=== PATIENT | female | born 1980 | race Two or more races ===

== ENCOUNTER 2018-07-03 11:09 | Inpatient (IN) | payer OTHER ==
[~2018-07-03] VITALS: Ht 167.6 cm; Wt 56.7 kg
[2018-07-03] MEDS ORDERED: VANCOMYCIN IV 1,000 MG in IV DEXTROSE 5% 250 ML IV ONE (12:00)
[2018-07-03] MEDS ORDERED: MORPHINE SULFATE 10 MG/1 ML DISP.SYRIN IV ONE ×2 (12:00→14:00)
[2018-07-03] MEDS ORDERED: LEVOFLOXACIN 750MG/D5W 150 ML IV ONE (12:00)
[2018-07-03] MEDS ORDERED: LEVOFLOXACIN 750 MG/D5W 150 ML PIGGYBACK IV ONE (12:00)
[2018-07-03] MEDS ORDERED: VANCOMYCIN IV 200 ML ONE (12:01)
[2018-07-03] MEDS ORDERED: MORPHINE SULFATE 4 MG/1 ML DISP.SYRIN ONE ×2 (12:03→14:01)
[2018-07-03 12:19] LABS: BASOPHILS % (AUTO) 0.4 % (0.0-2.0); EOSINOPHILS # (AUTO) 0.1 K/uL (0.0-0.7); EOSINOPHILS % (AUTO) 1.1 % (0.0-7.0); HEMATOCRIT 26.8 % (31.2-41.9); HEMOGLOBIN 8.8 g/dL (10.9-14.3); LYMPHOCYTES % (AUTO) 11.7 % (20.5-51.5); MEAN CORPUSCULAR HEMOGLOBIN 25.9 uug (24.7-32.8); MEAN CORPUSCULAR HGB CONC 33 g/dL (32.3-35.6); MEAN CORPUSCULAR VOLUME 79.1 fL (75.5-95.3); MONOCYTES # (AUTO) 0.9 K/uL (2.0-10.0); MONOCYTES % (AUTO) 10.3 % (0.0-11.0); NEUTROPHILS # (AUTO) 6.5 K/uL (1.8-8.9); NEUTROPHILS % (AUTO) 76.5 % (38.5-71.5); PLATELET COUNT (AUTO) 309 K/uL (179-408); RED BLOOD CELL COUNT(AUTO) 3.39 MIL/uL (3.63-4.92); WHITE BLOOD COUNT (AUTO) 8.5 K/uL (3.8-11.8)
[2018-07-03 12:26] LABS: CARBON DIOXIDE 29 mmol/L (21-32); CHLORIDE 96 mmol/L (98-107); CREATININE 0.5 mg/dL (0.6-1.3); GLUCOSE 89 mg/dL (74-106); POTASSIUM 3.1 mmol/L (3.5-5.1); UREA NITROGEN, BLOOD 11 mg/dL (7-18)
[2018-07-03 12:31] LABS: ALANINE AMINOTRANSFERASE 109 U/L (14-59); ALKALINE PHOSPHATASE 167 U/L (50-136); ASPARTATE AMINOTRANSFERASE 75 U/L (15-37); BILIRUBIN,DIRECT 0.3 mg/dL (0.0-0.2); BILIRUBIN,TOTAL 0.7 mg/dL (0.2-1.0); TOTAL PROTEIN, SERUM 6.9 g/dL (6.4-8.2)
[2018-07-03] MEDS ORDERED: diphenhydrAMINE 25 MG CAP PO ONE ×2 (12:44→12:45)
[2018-07-03] MEDS ORDERED: POTASSIUM BICARBONATE/CIT AC 25 MEQ TABLET.EFF ONE (12:45)
[2018-07-03] MEDS ORDERED: POTASSIUM BICARBONATE/CIT AC 25 MEQ TABLET.EFF PO ONE (12:45)
[2018-07-03] MEDS ORDERED: LORAZEPAM 0.5 MG TABLET PO ONE (13:30)
[2018-07-03] MEDS ORDERED: LIDOCAINE 5% PATCH TD ONE ×2 (14:00→14:01)
[2018-07-03] MEDS ORDERED: LORAZEPAM 0.5 MG TABLET ONE (14:00)
[2018-07-03] MEDS ORDERED: LORA2TAB PO (20:50)
[2018-07-03 21:03] VITALS: BP 103/57
[2018-07-03] MEDS ORDERED: ONDANSETRON 4 MG/2 ML VIAL IV PRN (21:45)
[2018-07-03] MEDS ORDERED: MAGNESIUM HYDROXIDE 30 ML LIQUID UDC PO PRN (21:45)
[2018-07-03] MEDS: LORAZEPAM 2 MG/1 ML VIAL IV PRN (22:04)
[2018-07-03] MEDS: MORPHINE SULFATE 4 MG/1 ML DISP.SYRIN IV PRN (22:04)
[2018-07-03] MEDS ORDERED: MEROPENEM 1 G VIAL IV ONE (22:34)
[2018-07-03] MEDS ORDERED: VANCOMYCIN IV 1 G in PREMIXED 0 EACH IV ONE (23:00)
[2018-07-04] MEDS: MEROPENEM 500 MG in IV NORMAL SALINE 50 ML IV SCH ×2 (00:17→05:43)
[2018-07-04] MEDS ORDERED: VANCOMYCIN IV 200 ML ONE (01:02)
[2018-07-04] MEDS: IV 0.9% SODIUM CHLORID+ 20 KCL 1,000 ML IV PRN (01:23)
[2018-07-04] MEDS: MORPHINE SULFATE 4 MG/1 ML DISP.SYRIN IV PRN ×3 (02:31→15:30)
[2018-07-04 06:25] VITALS: BP 110/62
[2018-07-04] MEDS: FAMOTIDINE 20 MG TABLET PO SCH (08:01)
[2018-07-04] MEDS: VANCOMYCIN IV 1 G in PREMIXED 0 EACH IV SCH ×3 (10:34→21:00)
[2018-07-04] MEDS: LORAZEPAM 2 MG/1 ML VIAL IV PRN (10:48)
[2018-07-04 11:10] VITALS: BP 97/37
[2018-07-04] MEDS: MEROPENEM 0.5 G in IV NORMAL SALINE 50 ML IV SCH ×2 (13:53→22:00)
[2018-07-04 15:12] VITALS: BP 100/42
[2018-07-04 20:38] VITALS: BP 98/57
[2018-07-05] MEDS: VANCOMYCIN IV 1 G in PREMIXED 0 EACH IV SCH ×3 (04:30→23:45)
[2018-07-05] MEDS: MEROPENEM 0.5 G in IV NORMAL SALINE 50 ML IV SCH ×3 (05:33→20:01)
[2018-07-05] MEDS: FAMOTIDINE 20 MG TABLET PO SCH (09:00)
[2018-07-05] MEDS: MORPHINE SULFATE 4 MG/1 ML DISP.SYRIN IV PRN ×3 (12:20→21:47)
[2018-07-05] MEDS: LORAZEPAM 2 MG/1 ML VIAL IV PRN (13:30)
[2018-07-05] MEDS: IV 0.9% SODIUM CHLORID+ 20 KCL 1,000 ML IV PRN (13:45)
[2018-07-05 19:50] VITALS: BP 95/40
[2018-07-05] MEDS: HYDROCODONE/APAP 5-325MG TABLET PO PRN (19:50)
[2018-07-05] MEDS: LACTOBACILLUS RHAMNOSUS GG 1 EACH CAPSULE PO SCH (20:01)
[2018-07-05] MEDS: ZOLPIDEM 5 MG TABLET PO PRN (23:46)
[2018-07-06] MEDS: LORAZEPAM 2 MG/1 ML VIAL IV PRN (01:39)
[2018-07-06] MEDS: MORPHINE SULFATE 4 MG/1 ML DISP.SYRIN IV PRN ×3 (01:47→09:39)
[2018-07-06] MEDS: HYDROCODONE/APAP 5-325MG TABLET PO PRN (03:22)
[2018-07-06 04:25] VITALS: BP 96/43
[2018-07-06] MEDS: MEROPENEM 0.5 G in IV NORMAL SALINE 50 ML IV SCH ×3 (05:11→21:01)
[2018-07-06 06:38] LABS: BASOPHILS % (AUTO) 0.6 % (0.0-2.0); EOSINOPHILS # (AUTO) 0.1 K/uL (0.0-0.7); EOSINOPHILS % (AUTO) 1.6 % (0.0-7.0); HEMATOCRIT 25.3 % (31.2-41.9); HEMOGLOBIN 8.2 g/dL (10.9-14.3); LYMPHOCYTES # (AUTO) 0.9 K/uL (20.0-40.0); LYMPHOCYTES % (AUTO) 11.1 % (20.5-51.5); MEAN CORPUSCULAR HEMOGLOBIN 25.3 uug (24.7-32.8); MEAN CORPUSCULAR HGB CONC 33 g/dL (32.3-35.6); MEAN CORPUSCULAR VOLUME 77.7 fL (75.5-95.3); MONOCYTES # (AUTO) 0.9 K/uL (2.0-10.0); MONOCYTES % (AUTO) 10.8 % (0.0-11.0); NEUTROPHILS # (AUTO) 6.1 K/uL (1.8-8.9); NEUTROPHILS % (AUTO) 75.9 % (38.5-71.5); PLATELET COUNT (AUTO) 332 K/uL (179-408); RED BLOOD CELL COUNT(AUTO) 3.26 MIL/uL (3.63-4.92); WHITE BLOOD COUNT (AUTO) 8.1 K/uL (3.8-11.8)
[2018-07-06 06:47] LABS: BILIRUBIN,TOTAL 0.4 mg/dL (0.2-1.0); CREATININE 0.6 mg/dL (0.6-1.3); MAGNESIUM 2.1 mg/dL (1.8-2.4); PHOSPHOROUS 3.3 mg/dL (2.5-4.9); POTASSIUM 3.7 mmol/L (3.5-5.1); TOTAL PROTEIN, SERUM 6.2 g/dL (6.4-8.2)
[2018-07-06] MEDS: VANCOMYCIN IV 1 G in PREMIXED 0 EACH IV SCH ×2 (08:00→08:26)
[2018-07-06] MEDS: LACTOBACILLUS RHAMNOSUS GG 1 EACH CAPSULE PO SCH ×2 (08:26→21:00)
[2018-07-06] MEDS: FAMOTIDINE 20 MG TABLET PO SCH (08:26)
[2018-07-06] MEDS: ACETAMINOPHEN 325 MG TABLET PO PRN (09:52)
[2018-07-06] MEDS ORDERED: MORPHINE SULFATE 4 MG/1 ML DISP.SYRIN IV ONE (10:45)
[2018-07-06] MEDS ORDERED: MORPHINE SULFATE 2 MG/1 ML DISP.SYRIN IV ONE (10:45)
[2018-07-06] MEDS: CLINDAMYCIN PHOSPHATE IV 900 MG in IV DEXTROSE 5% 100 ML IV SCH ×2 (12:03→19:53)
[2018-07-06 15:55] VITALS: BP 93/57
[2018-07-06 18:21] VITALS: BP 98/57
[2018-07-06] MEDS: IV 0.9% SODIUM CHLORID+ 20 KCL 1,000 ML IV PRN (18:54)
[2018-07-06 19:00] VITALS: BP 90/46
[2018-07-07] VITALS (7 sets, daily range): BP systolic 86–103; BP diastolic 31–49
[2018-07-07] MEDS: CLINDAMYCIN PHOSPHATE IV 900 MG in IV DEXTROSE 5% 100 ML IV SCH ×3 (03:55→19:55)
[2018-07-07] MEDS: ACETAMINOPHEN 325 MG TABLET PO PRN (03:56)
[2018-07-07] MEDS: MEROPENEM 0.5 G in IV NORMAL SALINE 50 ML IV SCH ×3 (05:14→21:57)
[2018-07-07] MEDS ORDERED: IV LACTATED RINGERS SOLUTION 1,000 ML BAG IV ONE (08:04)
[2018-07-07] MEDS ORDERED: LIDOCAINE-MPF 2% 5 ML VIAL MC ONE (08:04)
[2018-07-07] MEDS ORDERED: DEXAMETHASONE SOD PHOSPHATE 4 MG INJ IV ONE (08:04)
[2018-07-07] MEDS ORDERED: PROPOFOL 200 MG/20 ML BOTTLE IV ONE (08:04)
[2018-07-07] MEDS ORDERED: ONDANSETRON 4 MG/2 ML VIAL IV ONE (08:04)
[2018-07-07] MEDS: FAMOTIDINE 20 MG TABLET PO SCH (09:00)
[2018-07-07] MEDS: LACTOBACILLUS RHAMNOSUS GG 1 EACH CAPSULE PO SCH ×2 (09:00→20:41)
[2018-07-07] MEDS ORDERED: POLYMYXIN B SULFATE 500,000 UNITS, BACITRACIN 50,000 UNITS, NORMAL SALINE 20 ML MC ONE ×3 (11:15)
[2018-07-07] MEDS ORDERED: HYDROMORPHONE 2 MG/1 ML DISP.SYRIN ONE (12:12)
[2018-07-07] MEDS ORDERED: MIDAZOLAM HCL 2 MG/2 ML VIAL ONE ×2 (12:12→13:19)
[2018-07-07] MEDS ORDERED: SEVOFLURANE 250 ML BOTTLE ONE (12:22)
[2018-07-07] MEDS ORDERED: FENTANYL CITRATE 100 MCG/2 ML AMPUL ONE (13:14)
[2018-07-07] MEDS ORDERED: HYDROMORPHONE 1 MG/1 ML DISP.SYRIN ONE (13:35)
[2018-07-07] MEDS ORDERED: LORAZEPAM 2 MG/1 ML VIAL IM PRN (16:00)
[2018-07-07] MEDS ORDERED: HALOPERIDOL LACTATE 5 MG/1 ML VIAL IM ONE (16:00)
[2018-07-07] MEDS ORDERED: HALOPERIDOL DECANOATE 50 MG/1 ML AMPUL IM ONE (16:00)
[2018-07-07] MEDS: MORPHINE SULFATE 4 MG/1 ML DISP.SYRIN IV PRN ×2 (17:37→21:56)
[2018-07-07] MEDS: IV 0.9% SODIUM CHLORID+ 20 KCL 1,000 ML IV PRN (20:06)
[2018-07-07] MEDS: DIVALPROEX 500 MG TABLET.DR PO SCH (20:41)
[2018-07-07] MEDS: QUETIAPINE FUMARATE 100 MG TABLET PO SCH (20:41)
[2018-07-07] MEDS: ZOLPIDEM 5 MG TABLET PO PRN (20:56)
[2018-07-08] MEDS: MORPHINE SULFATE 4 MG/1 ML DISP.SYRIN IV PRN ×5 (03:03→20:16)
[2018-07-08 04:00] VITALS: BP 112/43
[2018-07-08] MEDS: CLINDAMYCIN PHOSPHATE IV 900 MG in IV DEXTROSE 5% 100 ML IV SCH ×3 (04:09→20:32)
[2018-07-08] MEDS: MEROPENEM 0.5 G in IV NORMAL SALINE 50 ML IV SCH ×3 (05:35→21:26)
[2018-07-08 07:20] VITALS: BP 112/43
[2018-07-08 08:00] VITALS: BP 124/69
[2018-07-08] MEDS: QUETIAPINE FUMARATE 100 MG TABLET PO SCH ×2 (08:38→20:19)
[2018-07-08] MEDS: DIVALPROEX 500 MG TABLET.DR PO SCH ×2 (08:38→20:18)
[2018-07-08] MEDS: FAMOTIDINE 20 MG TABLET PO SCH (08:38)
[2018-07-08] MEDS: LACTOBACILLUS RHAMNOSUS GG 1 EACH CAPSULE PO SCH ×2 (08:38→20:18)
[2018-07-08 09:15] LABS: BASOPHILS # (AUTO) 0.1 K/uL (0.0-8.0); BASOPHILS % (AUTO) 0.2 % (0.0-2.0); HEMATOCRIT 24.1 % (31.2-41.9); HEMOGLOBIN 7.8 g/dL (10.9-14.3); LYMPHOCYTES # (AUTO) 1.5 K/uL (20.0-40.0); LYMPHOCYTES % (AUTO) 5.5 % (20.5-51.5); MEAN CORPUSCULAR HEMOGLOBIN 25.5 uug (24.7-32.8); MEAN CORPUSCULAR HGB CONC 32 g/dL (32.3-35.6); MEAN CORPUSCULAR VOLUME 78.7 fL (75.5-95.3); MONOCYTES # (AUTO) 0.3 K/uL (2.0-10.0); MONOCYTES % (AUTO) 1.3 % (0.0-11.0); NEUTROPHILS # (AUTO) 24.9 K/uL (1.8-8.9); PLATELET COUNT (AUTO) 325 K/uL (179-408); RED BLOOD CELL COUNT(AUTO) 3.06 MIL/uL (3.63-4.92); WHITE BLOOD COUNT (AUTO) 26.8 K/uL (3.8-11.8)
[2018-07-08 09:25] LABS: CREATININE 0.6 mg/dL (0.6-1.3); MAGNESIUM 2.2 mg/dL (1.8-2.4); PHOSPHOROUS 2.4 mg/dL (2.5-4.9); POTASSIUM 4.4 mmol/L (3.5-5.1)
[2018-07-08 09:38] LABS: LYMPHOCYTES % (MANUAL) 4 % (20-40); MONOCYTES % (MANUAL) 1 % (2-10); NEUTROPHILS % (MANUAL) 95 % (42-75)
[2018-07-08 10:33] LABS: BASOPHILS % (AUTO) 0.1 % (0.0-2.0); HEMATOCRIT 22.7 % (31.2-41.9); LYMPHOCYTES # (AUTO) 1.6 K/uL (20.0-40.0); LYMPHOCYTES % (AUTO) 6.4 % (20.5-51.5); MEAN CORPUSCULAR HEMOGLOBIN 25.2 uug (24.7-32.8); MEAN CORPUSCULAR HGB CONC 32 g/dL (32.3-35.6); MEAN CORPUSCULAR VOLUME 78.6 fL (75.5-95.3); MONOCYTES # (AUTO) 0.8 K/uL (2.0-10.0); MONOCYTES % (AUTO) 3.3 % (0.0-11.0); NEUTROPHILS # (AUTO) 22.6 K/uL (1.8-8.9); NEUTROPHILS % (AUTO) 90.2 % (38.5-71.5); PLATELET COUNT (AUTO) 330 K/uL (179-408); RED BLOOD CELL COUNT(AUTO) 2.89 MIL/uL (3.63-4.92)
[2018-07-08 10:34] LABS: HEMOGLOBIN 7.3 g/dL (10.9-14.3)
[2018-07-08] MEDS: IV 0.9% SODIUM CHLORID+ 20 KCL 1,000 ML IV PRN (10:48)
[2018-07-08 11:35] VITALS: BP 171/103
[2018-07-08] MEDS: diphenhydrAMINE 50 MG/1 ML VIAL IV PRN ×2 (12:21→17:59)
[2018-07-08] MEDS ORDERED: NEUTRA PHOS PACKET PO ONE (15:30)
[2018-07-08] MEDS: LORAZEPAM 2 MG/1 ML VIAL IV PRN (16:56)
[2018-07-08 18:00] VITALS: BP 101/55
[2018-07-08] MEDS: ACETAMINOPHEN 325 MG TABLET PO PRN (18:56)
[2018-07-08 20:00] VITALS: BP 126/78
[2018-07-08] MEDS: ZOLPIDEM 5 MG TABLET PO PRN (20:29)
[2018-07-08] MEDS: BACLOFEN 10 MG TABLET PO SCH (22:12)
[2018-07-09] MEDS: diphenhydrAMINE 50 MG/1 ML VIAL IV PRN ×2 (01:01→10:30)
[2018-07-09] MEDS: MORPHINE SULFATE 4 MG/1 ML DISP.SYRIN IV PRN ×4 (01:01→14:07)
[2018-07-09] MEDS: CLINDAMYCIN PHOSPHATE IV 900 MG in IV DEXTROSE 5% 100 ML IV SCH ×2 (03:20→12:41)
[2018-07-09 04:00] VITALS: BP 100/61
[2018-07-09] MEDS: MEROPENEM 0.5 G in IV NORMAL SALINE 50 ML IV SCH ×2 (05:01→14:07)
[2018-07-09] MEDS: LORAZEPAM 2 MG/1 ML VIAL IV PRN (07:40)
[2018-07-09] MEDS ORDERED: ENSURE ENLIVE (VAN) 240 ML LIQUID PO SCH (08:15)
[2018-07-09 08:51] LABS: BASOPHILS # (AUTO) 0.1 K/uL (0.0-8.0); BASOPHILS % (AUTO) 0.8 % (0.0-2.0); EOSINOPHILS # (AUTO) 0.4 K/uL (0.0-0.7); EOSINOPHILS % (AUTO) 3.9 % (0.0-7.0); LYMPHOCYTES # (AUTO) 3.1 K/uL (20.0-40.0); LYMPHOCYTES % (AUTO) 33.4 % (20.5-51.5); MEAN CORPUSCULAR HGB CONC 32 g/dL (32.3-35.6); MEAN CORPUSCULAR VOLUME 77.6 fL (75.5-95.3); MONOCYTES # (AUTO) 0.5 K/uL (2.0-10.0); MONOCYTES % (AUTO) 5.1 % (0.0-11.0); NEUTROPHILS # (AUTO) 5.3 K/uL (1.8-8.9); NEUTROPHILS % (AUTO) 56.8 % (38.5-71.5); PLATELET COUNT (AUTO) 382 K/uL (179-408); RED BLOOD CELL COUNT(AUTO) 3.61 MIL/uL (3.63-4.92); WHITE BLOOD COUNT (AUTO) 9.3 K/uL (3.8-11.8)
[2018-07-09] MEDS ORDERED: QUETIAPINE FUMARATE 200 MG TABLET PO SCH (09:00)
[2018-07-09 09:10] LABS: CREATININE 0.8 mg/dL (0.6-1.3); MAGNESIUM 1.8 mg/dL (1.8-2.4); PHOSPHOROUS 4.4 mg/dL (2.5-4.9); POTASSIUM 4.2 mmol/L (3.5-5.1)
[2018-07-09 09:37] LABS: LYMPHOCYTES % (MANUAL) 38 % (20-40); NEUTROPHILS % (MANUAL) 50 % (42-75)
[2018-07-09 09:38] LABS: EOSINOPHILS % (MANUAL) 5 % (0-8); MONOCYTES % (MANUAL) 7 % (2-10)
[2018-07-09] MEDS: FAMOTIDINE 20 MG TABLET PO SCH (09:42)
[2018-07-09] MEDS: LACTOBACILLUS RHAMNOSUS GG 1 EACH CAPSULE PO SCH (09:42)
[2018-07-09] MEDS: BACLOFEN 10 MG TABLET PO SCH (09:43)
[2018-07-09] MEDS: DIVALPROEX 500 MG TABLET.DR PO SCH (09:43)
== END 2018-07-09 16:00 | disposition home or self-care (01) | DRG 364 ==
LOC: ER 11:09 → MED 20:25
PROVIDERS: ADMIT Internal Medicine; ATTEND Internal Medicine
PROC: 05HM33Z Insertion of Infusion Device into Right Internal Jugular Vein, Percutaneous Approach (ICD-10-PCS; principal; 2018-07-05)
PROC: B543ZZA Ultrasonography of Right Jugular Veins, Guidance (ICD-10-PCS; principal; 2018-07-05)
PROC: 0J9L3ZX Drainage of Right Upper Leg Subcutaneous Tissue and Fascia, Percutaneous Approach, Diagnostic (ICD-10-PCS; 2018-07-07)
PROC: 0J9D3ZX Drainage of Right Upper Arm Subcutaneous Tissue and Fascia, Percutaneous Approach, Diagnostic (ICD-10-PCS; 2018-07-07)
PROC: 0JJW3ZZ Inspection of Lower Extremity Subcutaneous Tissue and Fascia, Percutaneous Approach (ICD-10-PCS; 2018-07-07)
PROC: 0JDD0ZZ Extraction of Right Upper Arm Subcutaneous Tissue and Fascia, Open Approach (ICD-10-PCS; 2018-07-07)
PROC: 0JDL0ZZ Extraction of Right Upper Leg Subcutaneous Tissue and Fascia, Open Approach (ICD-10-PCS; 2018-07-07)
DX: L03.115 Cellulitis of right lower limb (principal); E87.8 Other disorders of electrolyte and fluid balance, not elsewhere classified; F11.20 Opioid dependence, uncomplicated; F31.64 Bipolar disorder, current episode mixed, severe, with psychotic features; S41.031S Puncture wound without foreign body of right shoulder, sequela; D63.8 Anemia in other chronic diseases classified elsewhere; E87.6 Hypokalemia; F12.90 Cannabis use, unspecified, uncomplicated; F17.210 Nicotine dependence, cigarettes, uncomplicated; L02.413 Cutaneous abscess of right upper limb; B95.62 Methicillin resistant Staphylococcus aureus infection as the cause of diseases classified elsewhere; L02.416 Cutaneous abscess of left lower limb; L02.415 Cutaneous abscess of right lower limb; S71.132S Puncture wound without foreign body, left thigh, sequela; S71.131S Puncture wound without foreign body, right thigh, sequela; X78.8XXS Intentional self-harm by other sharp object, sequela; Z90.710 Acquired absence of both cervix and uterus; Z90.49 Acquired absence of other specified parts of digestive tract; Z88.0 Allergy status to penicillin; L03.317 Cellulitis of buttock; Z91.5 Personal history of self-harm; Z59.0 Homelessness; K76.9 Liver disease, unspecified; B19.20 Unspecified viral hepatitis C without hepatic coma; Z98.890 Other specified postprocedural states; L90.5 Scar conditions and fibrosis of skin
CPT/HCPCS: 36415; 36569; 70030-TC; 71045; 73700; 83735; 84100; 85025; 86803; 87070; 87075; 87077; 93005; A4649; A4663; C1751; G0378; J1100; J1170; J1200; J1630; J1956; J2060; J2185; J2250; J2270; J2405; J3010; J3370; J3490; J7030; J7040; J7050; J7060; J7120; Q0163

== ENCOUNTER 2018-12-17 14:13 | Inpatient (IN) | payer OTHER ==
[~2018-12-17] VITALS: Ht 167.6 cm; Wt 50.8 kg
[~2018-12-17 14:13] MED LIST: LORA2TAB PO
--- NOTE | 2018-12-17 14:51 | NUR ---
Dr Fonseca at the bedside for MSE.
--- NOTE | 2018-12-17 14:56 | NUR ---
Wound cx from RT hip, collected and sent to LAB.
[2018-12-17] MEDS ORDERED: SUBOXONE (14:57)
[2018-12-17] MEDS ORDERED: GABAPENTIN (14:57)
[2018-12-17] MEDS ORDERED: VANCOMYCIN IV 1,000 MG in IV DEXTROSE 5% 250 ML IV ONE (15:00)
[2018-12-17] MEDS ORDERED: MORPHINE SULFATE 2 MG/1 ML DISP.SYRIN IV ONE (15:00)
[2018-12-17] MEDS ORDERED: ONDANSETRON 4 MG/2 ML VIAL IV ONE (15:00)
[2018-12-17] MEDS ORDERED: IV NORMAL SALINE 1000 ML BAG IV ONE (15:00)
--- NOTE | 2018-12-17 15:01 | NUR ---
Called nursing office to notify supervisor rubber covering of needing PICC/Midline for pt.
[2018-12-17] MEDS ORDERED: ONDANSETRON 4 MG/2 ML VIAL ONE (15:07)
[2018-12-17] MEDS ORDERED: MORPHINE SULFATE 4 MG/1 ML DISP.SYRIN ONE ×2 (15:07→16:20)
[2018-12-17] MEDS ORDERED: VANCOMYCIN IV 200 ML ONE (15:08)
[2018-12-17] MEDS ORDERED: diphenhydrAMINE 50 MG CAPSULE PO ONE (15:15)
[2018-12-17] MEDS ORDERED: diphenhydrAMINE 50 MG CAPSULE ONE (15:19)
[2018-12-17 15:28] LABS: CREATININE 0.8 mg/dL (0.6-1.3); POTASSIUM 3.6 mmol/L (3.5-5.1)
[2018-12-17 15:34] LABS: BILIRUBIN,DIRECT 0.1 mg/dL (0.0-0.2); BILIRUBIN,TOTAL 0.3 mg/dL (0.2-1.0); TOTAL PROTEIN, SERUM 7.1 g/dL (6.4-8.2)
[2018-12-17 15:35] LABS: BASOPHILS # (AUTO) 0.1 K/uL (0.0-8.0); BASOPHILS % (AUTO) 0.8 % (0.0-2.0); EOSINOPHILS # (AUTO) 0.3 K/uL (0.0-0.7); EOSINOPHILS % (AUTO) 3.8 % (0.0-7.0); HEMATOCRIT 27.8 % (31.2-41.9); HEMOGLOBIN 8.9 g/dL (10.9-14.3); LYMPHOCYTES # (AUTO) 1.7 K/uL (20.0-40.0); LYMPHOCYTES % (AUTO) 23.4 % (20.5-51.5); MEAN CORPUSCULAR HEMOGLOBIN 23.9 uug (24.7-32.8); MEAN CORPUSCULAR HGB CONC 32 g/dL (32.3-35.6); MEAN CORPUSCULAR VOLUME 75.2 fL (75.5-95.3); MONOCYTES # (AUTO) 0.7 K/uL (2.0-10.0); MONOCYTES % (AUTO) 8.9 % (0.0-11.0); NEUTROPHILS # (AUTO) 4.6 K/uL (1.8-8.9); NEUTROPHILS % (AUTO) 63.1 % (38.5-71.5); PLATELET COUNT (AUTO) 327 K/uL (179-408); WHITE BLOOD COUNT (AUTO) 7.3 K/uL (3.8-11.8)
[2018-12-17] MEDS ORDERED: IOHEXOL 300MG/ML 100 ML INFUS..BTL ONE (16:00)
[2018-12-17] MEDS ORDERED: SWABABLE VALVE TRANSFER SET EA MC ONE (16:00)
[2018-12-17] MEDS ORDERED: IV NORMAL SALINE 250 ML IV ONE (16:00)
[2018-12-17] MEDS ORDERED: MORPHINE SULFATE 10 MG/1 ML DISP.SYRIN IV ONE (16:15)
[2018-12-17] MEDS ORDERED: MORPHINE SULFATE 2 MG/1 ML DISP.SYRIN ONE (16:20)
--- NOTE | 2018-12-17 16:22 | NUR ---
Pt signed consent for CT w/ IV contras. Placed in the chart.
--- NOTE | 2018-12-17 16:28 | NUR ---
Pt out of ER for CT.
--- NOTE | 2018-12-17 16:53 | NUR ---
Pt back from [facility], PICC line RN at the bedside.
[2018-12-17 17:00] VITALS: BP 90/47
--- NOTE | 2018-12-17 17:13 | NUR ---
Midline insertion completed by Garry. Pt has angio # 18 to [place].
[2018-12-17 17:24] LABS: *BILIRUBIN,URIN NEGATIVE (NEGATIVE); *BLOOD, URINE 3+ (NEGATIVE); *CLARITY,URINE CLEAR (CLEAR); *COLOR,URINE YELLOW (YELLOW); *KETONES,URINE TRACE (NEGATIVE); *UROBILINOGEN,URINE 0.2 E.U./dl (NORMAL); LEUKOCYTE ESTERASE ,URINE TRACE (NEGATIVE); NITRITE, URINE NEGATIVE (NEGATIVE); UGLUCOSE NEGATIVE (NEGATIVE)
[2018-12-17 17:40] LABS: BACTERIA,URINE FEW /HPF (NONE SEEN); WBC,URINE 0-3 /HPF (0-3)
[2018-12-17 17:41] LABS: SQUAMOUS EPITHELIAL CELL,UR MODERATE /HPF (NONE SEEN)
[2018-12-17] MEDS ORDERED: IV NS 1000 ML 1,000 ML IV PRN (17:43)
[2018-12-17] MEDS ORDERED: Z GUARD REMEDY PASTE 57 GM TUBE TOP PRN (17:45)
[2018-12-17] MEDS ORDERED: ONDANSETRON 4 MG/2 ML VIAL IV PRN (17:45)
[2018-12-17] MEDS ORDERED: HYDROCODONE/APAP 5-325MG TABLET PO PRN (17:45)
[2018-12-17] MEDS ORDERED: ACETAMINOPHEN 325 MG TABLET PO PRN (17:45)
[2018-12-17] MEDS ORDERED: HYDROCODONE/APAP 10-325 MG TABLET PO PRN (17:45)
[2018-12-17] MEDS ORDERED: MAGNESIUM HYDROXIDE 30 ML LIQUID UDC PO PRN (17:45)
--- NOTE | 2018-12-17 17:54 | NUR ---
Patient admitted to room 312 A/A/O4, refusing to have gown changed or photos taken. Patient states 10/10 pain in bilateral hips, patient showed RN hip wounds. Allowed SUPERVISOR ASSEMBLY AND PACKING to take vitals and is now sleeping. BP low will notify MD. Bed alarm on, call light in reach
[2018-12-17] MEDS ORDERED: LEVOFLOXACIN 500 MG TABLET PO SCH (18:00)
--- NOTE | 2018-12-17 18:24 | NUR ---
CLINICAL PHARMACY NOTE:VANCOMYCIN DOSING Request for vancomycin dosing on 38 y/o female 167.64cm 50.8KG for cellulitis of hip Temp 98.8 BUN 23 Scr 0.8 WBC 7.3 also on oral Levaquin, received vancomycin 1gm in ER. Continue vancomycin 750mg ivpb q14 hours estimated trough 14. Will order trough level prior to 4 th dose. Will continue to monitor.
--- NOTE | 2018-12-17 18:32 | NUR ---
Patient on tele
--- NOTE | 2018-12-17 19:47 | NUR ---
Received patient asleep in bed, not in any form of distress. With midline on left upper arm to ongoing IV hydration. Will monitor for severe pain, noted MD consulting with pain management regarding this patient's medication per shift report. Will monitor closely for hypotensive episodes. Bed in low position, locked, side rails up x 2 for safety. will continue to monitor.
[2018-12-17 20:00] VITALS: BP 90/41
[2018-12-17] MEDS ORDERED: ENOXAPARIN SODIUM 40 MG/0.4 ML DISP.SYRIN SQ SCH (21:00)
[2018-12-17] MEDS ORDERED: DOCUSATE SODIUM 250 MG CAPSULE PO SCH (21:00)
--- NOTE | 2018-12-17 21:15 | NUR ---
Patient verbalizing she is in severe pain, offered [place] tablet which is the medication Tasia Rivera ordered for her however patient declined. The patient declined to take her other oral medication and declined to have Lovenox injection. Patient stating that she needs IV pain medication. Explained that she has low blood pressure and it is not safe to give any IV opioid pain medication to her, patient insisting to get IV pain medication. Contacted Tasia Rivera regarding pain management, states she is still awaiting response from pain management. Tasia Rivera states it is not safe to give her opioid IV pain medication because of her low blood pressure and that patient was already given very high dose of morphine at ED. No new medication orders, states continue to offer [place] tablet.
--- NOTE | 2018-12-17 22:00 | NUR ---
Patient verbalizing she will leave the hospital if she is not given any IV pain medication. She is still refusing to take [place]. Called her counselor, Martinez, who offered to speak with the patient however patient declined to speak with anyone. Martinez said she will call me back and will try to send someone here in the hospital to speak with patient.
--- NOTE | 2018-12-17 22:30 | NUR ---
Received a call from Syd, from the [facility]. Patient spoke with Syd. After the call, patient no longer insisting to get pain medications and just requests to let her sleep and not to be bothered. Addendum: 12/18/18 at 0155 by STARR ROCHE RN Patient still declining to have photo of wound to be taken at this time because of pain.
[2018-12-18] MEDS ORDERED: VANCOMYCIN IV 750 MG in IV DEXTROSE 5% 250 ML IV SCH (03:00)
[2018-12-18 04:00] VITALS: BP 120/57
--- NOTE | 2018-12-18 05:35 | NUR ---
Patient slept intermittently throughout the night. Still complaining of pain, but declining to take [place] tab. No ordered IV pain medications. Still with ongoing IV fluid thru left upper arm midline. Still declining to have wound photo taken. Attended needs. Ensured safety and comfort.
[2018-12-18] MEDS ORDERED: PANTOPRAZOLE SODIUM 40 MG TABLET.DR PO SCH (07:00)
--- NOTE | 2018-12-18 07:23 | NUR ---
Patient declined blood draw and medications this morning. Still declined to take norco tablet for pain.
--- NOTE | 2018-12-18 08:30 | NUR ---
PT. C/O SEVERE HIP PAIN 04/28. REFUSING PO PAIN MED. REFUSING TO HAVE V/S CHECKED. STATES JUST LEAVE ME ALONE. ALSO REFUSING TO HAVE AM LABS DRAWN VIA MIDLINE IV. STATES I'M NOT DOING ANYTHING "GO AWAY"
--- NOTE | 2018-12-18 11:54 | NUR ---
CLINICAL PHARMACY NOTE:VANCOMYCIN DOSING Continue for vancomycin dosing on 38 y/o female 167.64cm 50.8KG for cellulitis of hip BUN 23(12/17) Scr 0.8(12/17) WBC 7.3 (12/17) also on oral Levaquin. Continue vancomycin 750mg ivpb q14 hours estimated trough 14(2nd dose today at 1700). Will order trough level prior to 4 th dose(not ordered yet). Will continue to monitor.
[2018-12-18 12:51] LABS: BASOPHILS % (AUTO) 0.4 % (0.0-2.0); EOSINOPHILS # (AUTO) 0.2 K/uL (0.0-0.7); EOSINOPHILS % (AUTO) 2.6 % (0.0-7.0); HEMATOCRIT 28.4 % (31.2-41.9); HEMOGLOBIN 9.1 g/dL (10.9-14.3); LYMPHOCYTES # (AUTO) 1.4 K/uL (20.0-40.0); LYMPHOCYTES % (AUTO) 19.9 % (20.5-51.5); MEAN CORPUSCULAR HEMOGLOBIN 24.2 uug (24.7-32.8); MEAN CORPUSCULAR HGB CONC 32 g/dL (32.3-35.6); MEAN CORPUSCULAR VOLUME 75.4 fL (75.5-95.3); MONOCYTES # (AUTO) 0.6 K/uL (2.0-10.0); MONOCYTES % (AUTO) 8.2 % (0.0-11.0); NEUTROPHILS # (AUTO) 4.8 K/uL (1.8-8.9); NEUTROPHILS % (AUTO) 68.9 % (38.5-71.5); PLATELET COUNT (AUTO) 296 K/uL (179-408); RED BLOOD CELL COUNT(AUTO) 3.77 MIL/uL (3.63-4.92)
[2018-12-18 13:03] LABS: CREATININE 0.8 mg/dL (0.6-1.3); MAGNESIUM 1.9 mg/dL (1.8-2.4); PHOSPHOROUS 3.1 mg/dL (2.5-4.9); POTASSIUM 3.9 mmol/L (3.5-5.1)
[2018-12-18 13:12] LABS: THYROID STIMULATING HORMONE 1.285 mIU/mL (0.358-3.740)
[2018-12-18] MEDS ORDERED: METHADONE HCL 10 MG TABLET PO SCH (13:15)
--- NOTE | 2018-12-18 15:15 | NUR ---
DISCHARGED AMA-----ESCORTED TO FRONT DOOR TO AWAITING RIDE HOME. IV D/C'D AT 1500
== END 2018-12-18 15:15 | disposition left against medical advice (07) | DRG 383 ==
LOC: ER 14:13 → MEDSURG3 17:20 → TELE3 18:30
PROVIDERS: ADMIT Registered Nurse; ATTEND Registered Nurse
PROC: 05HY33Z Insertion of Infusion Device into Upper Vein, Percutaneous Approach (ICD-10-PCS; principal; 2018-12-17)
DX: L03.115 Cellulitis of right lower limb (principal); F11.20 Opioid dependence, uncomplicated; I95.2 Hypotension due to drugs; L03.116 Cellulitis of left lower limb; D63.8 Anemia in other chronic diseases classified elsewhere; G89.4 Chronic pain syndrome; N39.0 Urinary tract infection, site not specified; Z59.0 Homelessness; Z90.49 Acquired absence of other specified parts of digestive tract; Z90.710 Acquired absence of both cervix and uterus; Z91.19 Patient's noncompliance with other medical treatment and regimen; T40.2X5A Adverse effect of other opioids, initial encounter; Y92.538 Other ambulatory health services establishments as the place of occurrence of the external cause; F41.9 Anxiety disorder, unspecified; F12.90 Cannabis use, unspecified, uncomplicated; Z87.891 Personal history of nicotine dependence
CPT/HCPCS: 36415; 72193; 83735; 84100; 84443; 85025; 85730; 87070; 87077; 87086; A4663; G0378; J1650; J2270; J2405; J3370; J7030; J7050; J7060; Q0163; Q9967

== ENCOUNTER 2018-12-24 22:00 | Inpatient (IN) | payer OTHER ==
[~2018-12-24] VITALS: Ht 167.6 cm; Wt 57.6 kg
[~2018-12-24 22:00] MED LIST changes: +GABAPENTIN; -LORA2TAB PO; +SUBOXONE
--- NOTE | 2018-12-24 22:28 | NUR ---
Patient walked in to ER c/o abdominal pain, states "I think I have another bowel obstruction." Patient is aggravated and anxious with staff, limiting answers to questions and guarding. To room 4A.
--- NOTE | 2018-12-24 22:41 | NUR ---
Pt provided urine sample, given to lab.
[2018-12-24] MEDS ORDERED: ONDANSETRON 4 MG/2 ML VIAL IV ONE (22:45)
[2018-12-24] MEDS ORDERED: KETOROLAC TROMETHAMINE 15 MG INJ IVP ONE (22:45)
[2018-12-24] MEDS ORDERED: ONDANSETRON 4 MG/2 ML VIAL ONE (22:45)
[2018-12-24] MEDS ORDERED: IV NORMAL SALINE 1000 ML BAG IV ONE (22:45)
[2018-12-24] MEDS ORDERED: KETOROLAC TROMETHAMINE 15 MG INJ ONE (22:46)
[2018-12-24 23:00] LABS: *BILIRUBIN,URIN NEGATIVE (NEGATIVE); *BLOOD, URINE 2+ (NEGATIVE); *COLOR,URINE YELLOW (YELLOW); *KETONES,URINE NEGATIVE (NEGATIVE); *UROBILINOGEN,URINE 0.2 E.U./dl (NORMAL); LEUKOCYTE ESTERASE ,URINE TRACE (NEGATIVE); NITRITE, URINE NEGATIVE (NEGATIVE); UGLUCOSE NEGATIVE (NEGATIVE)
[2018-12-24] MEDS ORDERED: HYDROMORPHONE 1 MG/1 ML DISP.SYRIN IM ONE (23:00)
[2018-12-24 23:04] LABS: *CLARITY,URINE HAZY (CLEAR)
[2018-12-24] MEDS ORDERED: HYDROMORPHONE 1 MG/1 ML DISP.SYRIN ONE (23:08)
[2018-12-24 23:09] LABS: *URINE HCG, QUAL NEGATIVE (NEGATIVE)
[2018-12-24 23:12] LABS: RBC,URINE 80-100 /HPF (0-3)
[2018-12-24 23:13] LABS: BACTERIA,URINE FEW /HPF (NONE SEEN); MUCUS,URINE FEW /LPF (0-FEW); SQUAMOUS EPITHELIAL CELL,UR MODERATE /HPF (NONE SEEN)
[2018-12-24 23:15] LABS: *AMPHETAMINE, URINE NEGATIVE (NEGATIVE); *BARBITURATE, URINE POSITIVE (NEGATIVE); *CANNABINOID, URINE POSITIVE (NEGATIVE); *COCCAINE, URINE NEGATIVE (NEGATIVE); *OPIATE, URINE NEGATIVE (NEGATIVE); *PHENCYCLIDINE SCREEN,URINE NEGATIVE (NEGATIVE)
--- NOTE | 2018-12-24 23:20 | NUR ---
Patient exited room, raised her gown exposing her abdomen, and stated "just put an NG tube in and be done with it." Patient was educated regarding ordered tests and stated she would complete them.
--- NOTE | 2018-12-24 23:22 | NUR ---
Patient to RADIOLOGY for CT via [place].
[2018-12-24 23:23] LABS: BASOPHILS # (AUTO) 0.1 K/uL (0.0-8.0); EOSINOPHILS # (AUTO) 0.2 K/uL (0.0-0.7); HEMATOCRIT 29.5 % (31.2-41.9); HEMOGLOBIN 9.5 g/dL (10.9-14.3); LYMPHOCYTES % (AUTO) 22.6 % (20.5-51.5); MEAN CORPUSCULAR HEMOGLOBIN 24.5 uug (24.7-32.8); MEAN CORPUSCULAR HGB CONC 32 g/dL (32.3-35.6); MEAN CORPUSCULAR VOLUME 75.9 fL (75.5-95.3); MONOCYTES # (AUTO) 0.7 K/uL (2.0-10.0); MONOCYTES % (AUTO) 8.6 % (0.0-11.0); NEUTROPHILS # (AUTO) 5.7 K/uL (1.8-8.9); NEUTROPHILS % (AUTO) 65.8 % (38.5-71.5); PLATELET COUNT (AUTO) 339 K/uL (179-408); RED BLOOD CELL COUNT(AUTO) 3.89 MIL/uL (3.63-4.92); WHITE BLOOD COUNT (AUTO) 8.7 K/uL (3.8-11.8)
[2018-12-24 23:30] LABS: CREATININE 0.7 mg/dL (0.6-1.3); POTASSIUM 4.9 mmol/L (3.5-5.1)
[2018-12-24 23:33] LABS: ETHANOL < 3 MG/DL (0-0)
[2018-12-24 23:36] LABS: BILIRUBIN,DIRECT 0.1 mg/dL (0.0-0.2); BILIRUBIN,TOTAL 0.2 mg/dL (0.2-1.0); TOTAL PROTEIN, SERUM 7.9 g/dL (6.4-8.2)
--- NOTE | 2018-12-24 23:37 | NUR ---
Patient returned from RADIOLOGY, NAD noted.
--- NOTE | 2018-12-25 00:45 | NUR ---
According to Kin Crocker, he placed another f/u phone call regarding pending CT's that have not yet been published. He states that [place] is backed up right now and are currently trying to work on having the images read.
[2018-12-25] MEDS ORDERED: HYDROMORPHONE 1 MG/1 ML DISP.SYRIN ONE (01:29)
[2018-12-25] MEDS ORDERED: HYDROMORPHONE 1 MG/1 ML DISP.SYRIN IM ONE (01:30)
--- NOTE | 2018-12-25 02:10 | NUR ---
Nursing traffic sign supervisor called to request for PICC line nurse for insertion on patient.
--- NOTE | 2018-12-25 02:17 | NUR ---
Panel call requested from [facility], per rep. Dr. Mcdaniel will be paged. Awaiting call back.
--- NOTE | 2018-12-25 02:23 | NUR ---
Andonian on the line with ERMD
--- NOTE | 2018-12-25 02:27 | NUR ---
Report given to FIDEL Lewis
[2018-12-25] MEDS ORDERED: CLINDAMYCIN HCL 150 MG CAPSULE PO ONE (02:30)
[2018-12-25] MEDS ORDERED: ACETAMINOPHEN 325 MG TABLET PO PRN (02:45)
[2018-12-25] MEDS ORDERED: MAGNESIUM HYDROXIDE 30 ML LIQUID UDC PO PRN (02:45)
[2018-12-25] MEDS ORDERED: Z GUARD REMEDY PASTE 57 GM TUBE TOP PRN (02:45)
[2018-12-25] MEDS ORDERED: VANCOMYCIN IV 1 G in PREMIXED 0 EACH IV ONE (03:15)
--- NOTE | 2018-12-25 03:30 | NUR ---
Admitted in medical surgical floor, under the care of Dr Aguilera, belonging list done. Patient alert oriented, no sob no chest pain, body checked was done, with left hip abcess, with redness and swelling of the skin noted, patient also has multiple open wound on right hip, with small clear drainage noted, refused dressing to apply to wound. cont to monitor.
--- NOTE | 2018-12-25 03:31 | NUR ---
Patient transferred to [place] via [facility]. Radha.
[2018-12-25 03:35] VITALS: BP 103/46
[2018-12-25] MEDS ORDERED: CLINDAMYCIN HCL 150 MG CAPSULE ONE ×2 (04:01→05:10)
--- NOTE | 2018-12-25 04:27 | NUR ---
vanco iv medication not given, patient has no iv access.
--- NOTE | 2018-12-25 05:49 | NUR ---
PATIENT ALERT ORIENTED, NO SOB NO CHEST PAIN, HAS COMPLAIN OF PAIN OF LEFT HIP ABCESS, REFUSED DRESSING ON R OPEN WOUND. CONT TO MONITOR.
[2018-12-25] MEDS: HYDROCODONE/APAP 5-325MG TABLET PO PRN ×2 (06:52→17:39)
[2018-12-25 12:09] VITALS: BP 95/58
[2018-12-25] MEDS: HYDROCODONE/APAP 10-325 MG TABLET PO PRN ×2 (14:23→20:40)
[2018-12-25 15:47] VITALS: BP 100/64
--- NOTE | 2018-12-25 16:07 | NUR ---
CLINICAL PHARMACY NOTE:VANCOMYCIN DOSING Request for vancomycin dosing on 38 y/o female 167.64cm 57.6kg for cellulitis of hip temp 98.9 BUN 19 scr 0.7 WBC 8.7 Start vancomycin 1gm ivpb q12h. Estimated trough 14.7. Will order trough level prior to 4 th dose. Will continue to monitor
[2018-12-25] MEDS: VANCOMYCIN IV 1 G in PREMIXED 0 EACH IV SCH (17:02)
--- NOTE | 2018-12-25 19:35 | NUR ---
Received patient awake, alert and ambulatory. Not in any form of distress at the moment. With midline at left upper arm, patent and intact. Bed in low position, locked, side rails up for safety, call light within reach. Will continue to monitor.
[2018-12-25 20:00] VITALS: BP 120/64
--- NOTE | 2018-12-25 20:30 | NUR ---
Patient complaining of pain on both hips, prn pain medication given. Noted some discharge on both hip abscess, patient agreed to have dressing applied, cleansed with NS and covered with gauze with paper tape. Will continue to monitor.
[2018-12-25] MEDS: DOCUSATE SODIUM 100 MG CAPSULE PO SCH (20:40)
[2018-12-25] MEDS ORDERED: ZOLPIDEM 5 MG TABLET PO ONE (23:45)
--- NOTE | 2018-12-25 23:45 | NUR ---
Patient requesting for sleeping medication, called and spoke with Justin Gilmore NP who ordered to give patient 1 dose of Ambien 5mg.
[2018-12-26] MEDS: HYDROCODONE/APAP 10-325 MG TABLET PO PRN ×4 (02:34→20:02)
[2018-12-26] MEDS: VANCOMYCIN IV 1 G in PREMIXED 0 EACH IV SCH ×2 (04:22→16:14)
[2018-12-26 04:50] VITALS: BP 119/72
[2018-12-26 04:51] VITALS: BP 119/72
--- NOTE | 2018-12-26 05:43 | NUR ---
Patient slept intermittently throughout the night. With complaints of pain, prn pain medications given and cold compress done with slight pain relief. Still with midline on the left upper arm, patent and intact. Attended all needs. Ensured safety and comfort.
[2018-12-26 07:17] LABS: BASOPHILS % (AUTO) 0.5 % (0.0-2.0); EOSINOPHILS # (AUTO) 0.2 K/uL (0.0-0.7); HEMATOCRIT 28.1 % (31.2-41.9); LYMPHOCYTES # (AUTO) 1.3 K/uL (20.0-40.0); LYMPHOCYTES % (AUTO) 13.4 % (20.5-51.5); MEAN CORPUSCULAR HEMOGLOBIN 24.7 uug (24.7-32.8); MEAN CORPUSCULAR HGB CONC 32 g/dL (32.3-35.6); MEAN CORPUSCULAR VOLUME 76.9 fL (75.5-95.3); MONOCYTES # (AUTO) 0.7 K/uL (2.0-10.0); MONOCYTES % (AUTO) 6.9 % (0.0-11.0); NEUTROPHILS # (AUTO) 7.8 K/uL (1.8-8.9); NEUTROPHILS % (AUTO) 77.2 % (38.5-71.5); PLATELET COUNT (AUTO) 318 K/uL (179-408); RED BLOOD CELL COUNT(AUTO) 3.65 MIL/uL (3.63-4.92)
[2018-12-26 07:29] LABS: CREATININE 0.6 mg/dL (0.6-1.3); MAGNESIUM 2.1 mg/dL (1.8-2.4); PHOSPHOROUS 4.8 mg/dL (2.5-4.9); POTASSIUM 4.1 mmol/L (3.5-5.1)
[2018-12-26] MEDS: DOCUSATE SODIUM 100 MG CAPSULE PO SCH ×2 (08:28→20:02)
--- NOTE | 2018-12-26 08:30 | NUR ---
Received patient, awake, alert resting in bed. With burning pain over left and right hip rated as 10/10. PRN [place] 10-325 mg given. Not in any from of distress. PICC line over left arm intact and patent.
[2018-12-26] MEDS: ONDANSETRON 4 MG/2 ML VIAL IV PRN (09:13)
--- NOTE | 2018-12-26 09:45 | NUR ---
Patient vomited x1 previously ingested food, no associated diarrhea or abdominal pain, said she feels sick and nauseated. PRN Zofran given.
--- NOTE | 2018-12-26 11:11 | NUR ---
CLINICAL PHARMACY NOTE:VANCOMYCIN DOSING To continue vancomycin dosing on 38 y/o female 167.64cm 57.6kg for cellulitis of hip temp 98.2 BUN 12 scr 0.6 WBC 10.0 Will continue vancomycin 1gm ivpb q12h. Estimated trough 14.7. Trough due tomorrow early am at 0430. RN endorsed to hold dose if trough >20. Will check level in am and adjust as needed. Will follow
[2018-12-26 11:55] VITALS: BP 109/64
--- NOTE | 2018-12-26 13:28 | NUR ---
Seen and examined by Dr Hicks. patient requested for Benadryl for itching but Dr said that there is no need. Dr called for Surgical consult and informed Dr Kimbrough.
[2018-12-26 15:49] VITALS: BP 112/62
--- NOTE | 2018-12-26 16:02 | NUR ---
Wound culture right and left hip sent to lab. Seen by Dr Kimbrough. Consent for incision, drainage and debridement of bilateral hip abscess signed by patient. Instructed patient not to take anything by mouth after 12 midnight.
[2018-12-26] MEDS: ACETAMINOPHEN 325 MG TABLET PO SCH ×2 (16:14→21:30)
[2018-12-26] MEDS: GABAPENTIN 300 MG CAPSULE PO SCH ×2 (16:14→21:30)
[2018-12-26] MEDS: IBUPROFEN 800 MG TABLET PO SCH ×2 (16:14→21:30)
--- NOTE | 2018-12-26 19:32 | NUR ---
Received patient awake, alert and ambulatory. Not in any form of distress at the moment. With PICC line at left upper arm, patent and intact. Noted patient for surgery tomorrow at 10am, consent at chart, instructed to remain NPO after midnight. Bed in low position, locked, side rails up for safety, call light within reach. Will continue to monitor.
[2018-12-26 20:09] VITALS: BP 115/58
[2018-12-27] MEDS: HYDROCODONE/APAP 10-325 MG TABLET PO PRN ×4 (01:46→21:55)
--- NOTE | 2018-12-27 04:45 | NUR ---
Spoke with Dr. Mcdaniel regarding patient who is complaining of severe pain and asking for pain medication despite getting [place] 10/325mg already. Dr. Mcdaniel ordered to give patient P[place] 5/325mg one time only.
[2018-12-27] MEDS ORDERED: HYDROCODONE/APAP 5-325MG TABLET PO ONE (05:00)
[2018-12-27] MEDS: VANCOMYCIN IV 1 G in PREMIXED 0 EACH IV SCH ×3 (05:10→23:13)
[2018-12-27 05:37] VITALS: BP 93/54
[2018-12-27] MEDS ORDERED: POLYMYXIN B SULFATE 500,000 UNITS, BACITRACIN 50,000 UNITS, NORMAL SALINE 20 ML MC ONE ×3 (07:45)
[2018-12-27] MEDS: DOCUSATE SODIUM 100 MG CAPSULE PO SCH ×2 (09:00→20:06)
[2018-12-27] MEDS ORDERED: LIDOCAINE HCL 1% 20 ML VIAL ONE (09:54)
[2018-12-27] MEDS ORDERED: BUPIVACAINE/EPI PF 0.5% 10 ML VIAL ONE ×2 (09:54→09:55)
--- NOTE | 2018-12-27 09:57 | NUR ---
PATIENT LEFT FOR SURGERY
[2018-12-27] MEDS ORDERED: HYDROMORPHONE 2 MG/1 ML DISP.SYRIN ONE (10:10)
[2018-12-27] MEDS ORDERED: MIDAZOLAM HCL 2 MG/2 ML VIAL ONE (10:10)
[2018-12-27] MEDS ORDERED: MIDAZOLAM HCL 10 MG/2 ML VIAL ONE (11:13)
[2018-12-27] MEDS ORDERED: ONDANSETRON 4 MG/2 ML VIAL IV ONE (11:13)
[2018-12-27] MEDS ORDERED: LIDOCAINE HCL 2% 20 ML VIAL MC ONE (11:13)
[2018-12-27] MEDS ORDERED: PROPOFOL 200 MG/20 ML BOTTLE IV ONE (11:13)
[2018-12-27] MEDS ORDERED: SUCCINYLCHOLINE CHLORIDE 200 MG/10 ML VIAL MC ONE (11:13)
[2018-12-27] MEDS ORDERED: SEVOFLURANE 250 ML BOTTLE IH ONE (11:13)
[2018-12-27] MEDS ORDERED: IRR NORMAL SALINE IRRIGATION 2000 ML BOTTLE IR ONE (11:13)
[2018-12-27] MEDS ORDERED: IV NORMAL SALINE 1000 ML BAG IV ONE (11:13)
[2018-12-27] MEDS ORDERED: METOCLOPRAMIDE HCL 10 MG/2 ML VIAL IV ONE (11:13)
--- NOTE | 2018-12-27 12:30 | NUR ---
patient returned from procedure.
[2018-12-27 12:40] VITALS: BP 92/42
[2018-12-27] MEDS: IV LACTATED RINGERS SOLUTION 1,000 ML IV PRN (13:36)
--- NOTE | 2018-12-27 14:41 | NUR ---
CLINICAL PHARMACY NOTE:VANCOMYCIN DOSING To continue vancomycin dosing on 38 y/o female 167.64cm 57.6kg for cellulitis of hip temp 98 BUN 12 (6/9) scr 0.6 (6/9) WBC 10.0 (6/) Trough today at 0430: 10.9 As trough resulted subtherapeutic, adjusted regimen to 1gm q9hr for new estimated trough of 17.1, first dose today at 1400. Next trough ordered and due tomorrow at 1630. Will check trough at that time and adjust as needed. Will follow
[2018-12-27 16:00] VITALS: BP 105/58
--- NOTE | 2018-12-27 18:29 | NUR ---
PATIENT IN BED ALERT AND ORIENTED, C/O PAIN AND PRN PAIN MEDICATIONS GIVEN ORDERED, NO SOB NOTED AT THIS TIME, ATB GIVEN ORDERED WITH NO ASE NOTED AT THIS TIME. SAFETY AND COMFORT PROVIDED TO THE PATIENT , ALL NEEDS ATTENDED, PICC, WILL CONTINUE TO MONITOR AND CONTINUE TREATMENT PLAN. LINE INTACT
[2018-12-27] MEDS ORDERED: CLON0.1T PO (19:04)
[2018-12-27] MEDS ORDERED: GABA-534 PO (19:05)
[2018-12-27] MEDS ORDERED: TRAZ-214 PO (19:06)
--- NOTE | 2018-12-27 20:00 | NUR ---
RECEIVED PATIENT AMBULATING IN HALLWAY. PATIENT IS A/O X3. C/O PAIN IN BILATERAL HIPS. PATIENT AWARE THAT PAIN MEDICATION WONT BE DUE UNTIL 2200. PATIENT VERBALIZED UNDERSTANDING. VSS. IVF INFUSING WELL TO LEFT UPPER ARM, PICC LINE. NO RESP. DISTRESS NOTED. DRESSINGS NOTED TO BILATERAL HIPS, C/D/I. CALL LIGHT IN REACH. ALL NEEDS ATTENDED. WILL CONTINUE TO MONITOR AND ASSESS.
[2018-12-27 20:30] VITALS: BP 110/56
[2018-12-27] MEDS ORDERED: ZOLPIDEM 5 MG TABLET PO ONE (23:45)
--- NOTE | 2018-12-28 02:43 | NUR ---
DRESSINGS NOTED TO BILATERAL HIPS, SATURATED AND FALLING OFF PATIENT. NEW DRESSINGS APPLIED. PATIENT REFUSED FOR WOUNDS TO BE PACKED. ALL NEEDS ATTENDED. WILL CONTINUE TO MONITOR AND ASSESS.
[2018-12-28] MEDS: IV LACTATED RINGERS SOLUTION 1,000 ML IV PRN (04:00)
[2018-12-28] MEDS: HYDROCODONE/APAP 10-325 MG TABLET PO PRN ×2 (04:01→11:39)
--- NOTE | 2018-12-28 05:48 | NUR ---
PATIENT AWAKE IN BED. DRESSINGS C/D/I. VSS. IVF INFUSING WELL. CALL LIGHT IN REACH. ALL NEEDS ATTENDED. WILL CONTINUE TO MONITOR.
[2018-12-28 05:57] VITALS: BP 112/58
[2018-12-28] MEDS: VANCOMYCIN IV 1 G in PREMIXED 0 EACH IV SCH ×2 (08:59→17:34)
[2018-12-28] MEDS: DOCUSATE SODIUM 100 MG CAPSULE PO SCH ×2 (09:00→21:30)
[2018-12-28 11:57] VITALS: BP 94/43
--- NOTE | 2018-12-28 11:57 | NUR ---
Report received from Art Ba, patient received in bed AAO4. on oxygen liters and as stated by her "I turn it on myself cause I think I needed post surgery" patient educated that her saturation is within desired limits and currently there's no need of oxygen. Patient verbalized understanding oxygen removed by rn. Ba. IV line patent and infusing with LR. at 50cc/hr.
--- NOTE | 2018-12-28 12:43 | NUR ---
WOUND CARE CONSULT: PT REFUSED SKIN ASSESSMENT. CLARIFIED WOUND ORDERS WITH NURSING STAFF. WILL SEE PRN.
[2018-12-28] MEDS: SODIUM HYPOCHLORITE 0.125% 473 ML BOTTLE TP SCH (12:45)
[2018-12-28] MEDS: GABAPENTIN 300 MG CAPSULE PO SCH ×2 (13:00→16:26)
--- NOTE | 2018-12-28 13:00 | NUR ---
At this time patient refusing to have nursing staff at bedside and refusing med-schedule to be given at this time, will continue with care plan.
--- NOTE | 2018-12-28 13:24 | NUR ---
CLINICAL PHARMACY NOTE:VANCOMYCIN DOSING S:To continue vancomycin dosing on 38 y/o female 167.64cm 57.6kg for cellulitis of hip O:temp 98.4 BUN 12 (12/26) scr 0.6 (12/26) WBC 10.0 (12/26) Trough pending today at 1630 A/P:Will continue Vancomycin 1gm q9hr for new estimated trough of 17.1, third dose given today at 0800. Next trough ordered and due today at 1630. Will check trough at that time and adjust as needed. Will follow Addendum: 12/28/18 at 1727 by KILO BROWER VANCOMYCIN TROUGH 17.1 TODAY AT 1630. WILL CONTINUE SAME DOSE(1 GRAM Q9HRS)
[2018-12-28 16:00] VITALS: BP 108/66
--- NOTE | 2018-12-28 16:29 | NUR ---
patient found with dressing in her hand wound open to air, refusing treatment as ordered. Patient scratching herself educated on the need to keep wound covered and treated but still refusing. Pt's boyfriend at bedside. Charge nurse at bedside.
[2018-12-28] MEDS: HYDROCODONE/APAP 5-325MG TABLET PO PRN (16:40)
[2018-12-28] MEDS: ONDANSETRON 4 MG/2 ML VIAL IV PRN (18:32)
[2018-12-28 19:30] VITALS: BP 128/51
[2018-12-28] MEDS: diphenhydrAMINE 50 MG/1 ML VIAL IV PRN (20:49)
[2018-12-28] MEDS: TRAZODONE 100 MG TABLET PO SCH (21:30)
--- NOTE | 2018-12-28 21:30 | NUR ---
changed dressing and updated pictures taken on bilateral hip wounds, s/p debridement per Md Kimbrough instructions. patient tolerated well.
[2018-12-29] MEDS: diphenhydrAMINE 50 MG/1 ML VIAL IV PRN ×4 (02:15→20:49)
[2018-12-29] MEDS: VANCOMYCIN IV 1 G in PREMIXED 0 EACH IV SCH ×3 (02:15→20:44)
[2018-12-29 05:57] VITALS: BP 101/50
[2018-12-29 06:28] LABS: BASOPHILS % (AUTO) 0.2 % (0.0-2.0); EOSINOPHILS # (AUTO) 0.3 K/uL (0.0-0.7); EOSINOPHILS % (AUTO) 3.2 % (0.0-7.0); HEMATOCRIT 25.4 % (31.2-41.9); HEMOGLOBIN 8.2 g/dL (10.9-14.3); LYMPHOCYTES # (AUTO) 1.1 K/uL (20.0-40.0); LYMPHOCYTES % (AUTO) 10.5 % (20.5-51.5); MEAN CORPUSCULAR HEMOGLOBIN 24.9 uug (24.7-32.8); MEAN CORPUSCULAR HGB CONC 32 g/dL (32.3-35.6); MEAN CORPUSCULAR VOLUME 77.4 fL (75.5-95.3); MONOCYTES # (AUTO) 0.5 K/uL (2.0-10.0); MONOCYTES % (AUTO) 4.7 % (0.0-11.0); NEUTROPHILS # (AUTO) 8.5 K/uL (1.8-8.9); NEUTROPHILS % (AUTO) 81.4 % (38.5-71.5); PLATELET COUNT (AUTO) 278 K/uL (179-408); RED BLOOD CELL COUNT(AUTO) 3.28 MIL/uL (3.63-4.92); WHITE BLOOD COUNT (AUTO) 10.4 K/uL (3.8-11.8)
[2018-12-29 06:42] LABS: BILIRUBIN,TOTAL 0.3 mg/dL (0.2-1.0); CREATININE 0.7 mg/dL (0.6-1.3); MAGNESIUM 1.8 mg/dL (1.8-2.4); PHOSPHOROUS 4.7 mg/dL (2.5-4.9); POTASSIUM 4.5 mmol/L (3.5-5.1); TOTAL PROTEIN, SERUM 6.7 g/dL (6.4-8.2)
[2018-12-29 08:00] VITALS: BP 102/63
[2018-12-29] MEDS: DOCUSATE SODIUM 100 MG CAPSULE PO SCH ×2 (08:11→20:50)
[2018-12-29] MEDS: GABAPENTIN 300 MG CAPSULE PO SCH ×3 (08:12→16:27)
[2018-12-29] MEDS: SODIUM HYPOCHLORITE 0.125% 473 ML BOTTLE TP SCH (08:12)
--- NOTE | 2018-12-29 09:00 | NUR ---
Patient refusing dressing to be change as order stating no one touches my wound.
--- NOTE | 2018-12-29 09:30 | NUR ---
Attending physician Dr. Jeong notified of strong suspicions that patient is using drugs in the room due to strange behavior, especially when her boyfriend comes to visit. Addendum: 12/29/18 at 1143 by THOMAS BRANNON RN Orders received. Addendum: 12/29/18 at 1839 by THOMAS BRANNON RN Orders to restrict boy friend visits received and as stated by . if this prompts her to leave AMA there's nothing else we can do"
[2018-12-29] MEDS: HYDROCODONE/APAP 10-325 MG TABLET PO PRN ×2 (10:33→11:04)
--- NOTE | 2018-12-29 11:00 | NUR ---
A call from Ms. Martinez Little pt. drug counselor she was informed of pt's refusal for treatment and the fact that her boyfriend is visiting her. Addendum: 12/29/18 at 1142 by THOMAS BRANNON RN suggestions for urine drug screen received she was informed that procedure order by attending Dr. Jeong this morning, and we're waiting for pt. to give us the specimen.
[2018-12-29 12:12] VITALS: BP 117/47
--- NOTE | 2018-12-29 12:45 | NUR ---
norco administered at 2245 to help with pain associated with wound care. after administration patient asked for me to come back in 1 hr. came back to her room at 2345 and patient asked me to come back again in 1 hr. 44 checked on patient and knocked on door, patient was in deep sleep. will f/u with patient in the morning and see if she is ready for wound care. Addendum: 12/30/18 at 0236 by TIGRE AVENDANO RN correct time: 12/29/18 at 0045
--- NOTE | 2018-12-29 12:57 | NUR ---
CLINICAL PHARMACY NOTE:VANCOMYCIN DOSING S:To continue vancomycin dosing on 38 y/o female 167.64cm 57.6kg for cellulitis of hip O:temp max 100 BUN 13/0.7 WBC 10.4 Trough at 1630 (12/28) was 17.1 A/P:Will continue Vancomycin 1gm q9hr for trough of 17.1. will continue monitor renal fxn and adjust the dose if necessary.
[2018-12-29 13:41] LABS: *AMPHETAMINE, URINE NEGATIVE (NEGATIVE); *BARBITURATE, URINE POSITIVE (NEGATIVE); *CANNABINOID, URINE NEGATIVE (NEGATIVE); *COCCAINE, URINE NEGATIVE (NEGATIVE); *OPIATE, URINE POSITIVE (NEGATIVE); *PHENCYCLIDINE SCREEN,URINE NEGATIVE (NEGATIVE)
[2018-12-29 15:58] VITALS: BP 137/80
--- NOTE | 2018-12-29 17:52 | NUR ---
Patient seen by attending ID. Saud Bourne as reported pt. allowed her to remove dressing, stating that she will allow dressing changes which include packing of wound with next pain medication administration. Tayla informed of pt's refusal to have wound dressing changes.
--- NOTE | 2018-12-29 19:10 | NUR ---
Pt's drug counselor in to visit patient she stated "Ms Salmeron admitted to me that she's taking drugs and She wont do it again" in the mean time I totally agree to what the attending Dr. bird. I'll myself go out and speak to the boyfriend regarding having his visits to stop for now.
--- NOTE | 2018-12-29 19:30 | NUR ---
patient received lying in bed. a/o x4. no signs of acute distress noted. safety and comfort measures provided. bed in lowest position, side rails up x2, and call light within reach. will continue care.
[2018-12-29 20:00] VITALS: BP 121/66
--- NOTE | 2018-12-29 20:35 | NUR ---
spoke with Garry in the pharmacy regarding vanco administration scheduled tonight. vanco trough was ordered and resulted on 12/28/18 with trough level of 17.1 I confirmed with Garry that it was okay to administer vanco tonight. Addendum: 12/29/18 at 2342 by TIGRE AVENDANO RN It was also mentioned that patient has received 3 administrations of vanco at this time. at the following times; 12/29/18: 1058, 0215 12/28/18: 8302
[2018-12-29] MEDS: TRAZODONE 100 MG TABLET PO SCH (20:50)
[2018-12-29] MEDS: HYDROCODONE/APAP 5-325MG TABLET PO PRN ×2 (22:39→22:45)
[2018-12-30] MEDS: diphenhydrAMINE 50 MG/1 ML VIAL IV PRN ×2 (03:32→09:32)
[2018-12-30] MEDS: VANCOMYCIN IV 1 G in PREMIXED 0 EACH IV SCH (04:46)
[2018-12-30 04:51] VITALS: BP 120/60
--- NOTE | 2018-12-30 05:42 | NUR ---
patient slept intermittently throughout the night. a/o x4. comfort and safety measure provided. re-attempted to provide wound care for the patient right now. patient states she is not refusing treatment, but would like to do wound care later in the morning.
[2018-12-30] MEDS: HYDROCODONE/APAP 5-325MG TABLET PO PRN ×2 (05:52→10:48)
--- NOTE | 2018-12-30 05:52 | NUR ---
c/o of pain in the left and right hip at level of 7. administered norco. patient tolerated well.
--- NOTE | 2018-12-30 07:20 | NUR ---
Received patient in bed sleeping, no distress noted at this time. Bed in lowest position, side rails up x2, call light within reach. will continue to monitor.
[2018-12-30] MEDS: GABAPENTIN 300 MG CAPSULE PO SCH (08:49)
[2018-12-30] MEDS: DOCUSATE SODIUM 100 MG CAPSULE PO SCH (08:50)
--- NOTE | 2018-12-30 09:15 | NUR ---
CLINICAL PHARMACY NOTE:VANCOMYCIN DOSING S:To continue vancomycin dosing on 38 y/o female 167.64cm 57.6kg for cellulitis of hip O:temp 98.4 BUN 13/0.7 (12/29) WBC 10.4 (12/29) Trough at 1630 (12/28) was 17.1 A/P:Will continue Vancomycin 1gm q9hr as trough was 17.1. will continue monitor renal fxn and adjust the dose if necessary.
--- NOTE | 2018-12-30 10:00 | NUR ---
Speaking with patient and patient Patient confessed and verbalized, "I shot up heroin here in the hospital two nights ago. The person that you guys placed a restriction on for visitation is not the person who gave me the heroin". Hospital security notified immediately and all visitors will be restricted for visiting patient.
[2018-12-30] MEDS ORDERED: LORAZEPAM 2 MG/1 ML VIAL IV ONE (10:15)
[2018-12-30] MEDS: SODIUM HYPOCHLORITE 0.125% 473 ML BOTTLE TP SCH (11:50)
[2018-12-30] MEDS ORDERED: ACET325T53 PO (12:06)
[2018-12-30] MEDS ORDERED: SULF1TAB48 PO (12:06)
[2018-12-30] MEDS ORDERED: ASCO500P18 PO (12:09)
[2018-12-30] MEDS ORDERED: ZINC220C8 PO (12:09)
[2018-12-30 12:11] VITALS: BP 144/71
--- NOTE | 2018-12-30 12:45 | NUR ---
PATIENT DISCHARGED FROM HOSPITAL AT THIS TIME. HAS BEEN MEDICALLY STABLE AND MEDICALLY CLEARED BY . PATIENT'S PICC LINE DISCONNECTED SAFELY. NO SIGNS OF BLEEDING NOTED. NO SIGNS OF INFECTION NOTED. DISCHARGE INSTRUCTIONS/EDUCATION PROVIDED. ID-BAND TAKEN OFF. WOUND CARE PROVIDED. VITAL SIGNS STABLE. PATIENT LEFT HOSPITAL PREMISES SAFELY WITH PRIVATE CAR. SAFETY MEASURES IMPLEMENTED. BELONGINGS RETURNED TO PATIENT.
== END 2018-12-30 12:45 | disposition home or self-care (01) | DRG 361 ==
LOC: ER 22:02 → MEDSURG3 12-25 02:35
PROVIDERS: ADMIT Nurse Practitioner Acute Care; ATTEND Internal Medicine
PROC: 05H633Z Insertion of Infusion Device into Left Subclavian Vein, Percutaneous Approach (ICD-10-PCS; 2018-12-25)
PROC: 0KBP0ZZ Excision of Left Hip Muscle, Open Approach (ICD-10-PCS; principal; 2018-12-27)
PROC: 0HBHXZZ Excision of Right Upper Leg Skin, External Approach (ICD-10-PCS; principal; 2018-12-27)
DX: L03.116 Cellulitis of left lower limb (principal); E43 Unspecified severe protein-calorie malnutrition; E87.1 Hypo-osmolality and hyponatremia; E88.09 Other disorders of plasma-protein metabolism, not elsewhere classified; D50.9 Iron deficiency anemia, unspecified; F19.10 Other psychoactive substance abuse, uncomplicated; L02.31 Cutaneous abscess of buttock; L02.415 Cutaneous abscess of right lower limb; L03.115 Cellulitis of right lower limb; S71.03 Puncture wound without foreign body of hip; D63.8 Anemia in other chronic diseases classified elsewhere; L02.416 Cutaneous abscess of left lower limb; Z68.20 Body mass index [BMI] 20.0-20.9, adult; K59.00 Constipation, unspecified; G89.4 Chronic pain syndrome; Z88.0 Allergy status to penicillin; S71.032 Puncture wound without foreign body, left hip; X78.8XXS Intentional self-harm by other sharp object, sequela; B95.62 Methicillin resistant Staphylococcus aureus infection as the cause of diseases classified elsewhere; Z59.0 Homelessness; Z91.19 Patient's noncompliance with other medical treatment and regimen; F41.9 Anxiety disorder, unspecified; N39.0 Urinary tract infection, site not specified; R74.0 Nonspecific elevation of levels of transaminase and lactic acid dehydrogenase [LDH]; Z90.710 Acquired absence of both cervix and uterus; Z90.49 Acquired absence of other specified parts of digestive tract; G62.9 Polyneuropathy, unspecified
CPT/HCPCS: 36415; 80307; 83690; 83735; 84100; 84703; 85025; 87040; 87070; 87086; 87806; A4217; A4649; A4663; C1751; G0378; G0480; J0330; J1170; J1200; J1885; J2060; J2250; J2405; J2765; J3370; J3490; J7030; J7050; J7120